=== PATIENT | female | born 1955 | race Caucasian/White ===

== ENCOUNTER 2019-03-28 19:46 | Observation (INO) | payer BC ==
[2019-03-28] MEDS ORDERED: Acetaminophen 325 MG TAB ONE (22:24)
[2019-03-28] MEDS ORDERED: Ondansetron ODT 4 MG TAB SL PRN (23:26)
[2019-03-28] MEDS ORDERED: Ondansetron PF 4 MG/2 ML Vial IVP PRN (23:26)
[2019-03-29] MEDS ORDERED: HYDROcodone/Acetaminophen 5/325 mg Tablet PO PRN ×2 (00:09→00:20)
[2019-03-29] MEDS ORDERED: Nitroglycerin 0.4 MG TAB (25 Tab Bottle) SL PRN (00:09)
[2019-03-29 00:44] LABS: Troponin I Less than 0.010 ng/mL (< 0.028)
[2019-03-29 02:51] LABS: #Eosinphils 0.2 thou/uL (0.0-0.7); #Lymphocytes 1.9 thou/uL (1.20-3.40); #Monocytes 0.5 thou/uL (0.11-0.59); #Neutrophils 3.2 thou/uL (1.40-6.50); %Basophils 0.2 % (0.0-1.0); %Eosinophils 3.3 % (0.0-10.0); %Lymphocytes 33.3 % (21.0-51.0); %Monocytes 8.1 % (0.0-10.0); %Neutrophils 55.1 % (42.0-75.0); Hemoglobin 13.4 g/dL (12.0-16.0); Mean Corpuscular HGB CONC 34.5 g/dL (32.0-36.0); Mean Corpuscular Hemoglobin 31.4 pg (27.0-31.0); Mean Platelet Volume 7.7 fL (7.4-10.4); Platelet Count 167 thou/uL (130-400); RBC Distribution Width 11.9 % (11.5-14.5); Red Blood Cell (RBC) Count 4.28 mill/uL (4.20-5.40); White Blood Cell (WBC) Count 5.8 thou/uL (4.8-10.8)
[2019-03-29 03:16] LABS: Troponin I Less than 0.010 ng/mL (< 0.028)
[2019-03-29 03:19] LABS: Anion Gap 15 mmol/L (10-20); BUN (Urea Nitrogen) 15 mg/dL (9.8-20.1); Calc. Creatinine Clearance 96 mL/min (70-130); Calcium 9.5 mg/dL (7.8-10.44); Carbon Dioxide 23 mmol/L (23-31); Chloride 103 mmol/L (98-107); Estimated GFR-MDRD 69; Glucose 163 mg/dL (80-115); Potassium 4.4 mmol/L (3.5-5.1); Sodium 137 mmol/L (136-145)
[2019-03-29] MEDS: Acetaminophen 325 MG TAB PO PRN ×3 (03:21→15:23)
[2019-03-29] MEDS ORDERED: Fenofibrate Nanocrystallized 145 MG TAB PO SCH (09:00)
[2019-03-29] MEDS ORDERED: Citalopram 20 MG TAB PO SCH (09:00)
[2019-03-29] MEDS ORDERED: Triamterene/Hydrochlorothiazide 37.5 mg/25 mg Tablet PO SCH (09:00)
[2019-03-29] MEDS ORDERED: Ezetimibe 10 MG TAB PO SCH (09:00)
[2019-03-29] MEDS ORDERED: lamoTRIgine 100 MG TAB PO SCH (09:00)
[2019-03-29] MEDS ORDERED: ADENOSINE 60 MG/20 ML VIAL ONE (10:26)
--- NOTE | 2019-03-29 11:34 | HP ---
PRIMARY CARE DOCTOR: Dr. Birch. She reported that she follows [place] in [place] in [place]. CODE STATUS: Full code. TIME OF EVALUATION: 11:50 p.m. CHIEF COMPLAINT: Chest pain. HISTORY OF PRESENT ILLNESS: This is 63-year-old female patient with past medical history of diabetes type 2, hyperthyroidism, hyperlipidemia, high cholesterol, hypertension, seizures, came to the hospital after having chest pain that was in the middle of the chest, radiating to the back when she was watching TV. No clear triggers. No alleviating factors. The symptoms were rated at 5/10. The patient has not responded to nitroglycerin, symptoms started suddenly. REVIEW OF SYSTEMS: CONSTITUTIONAL: No fever, chills, or generalized weakness. RESPIRATORY: No cough, sputum production, or shortness of breath. CARDIOVASCULAR: The patient has chest pain. No palpitation. GASTROINTESTINAL: No nausea, vomiting, diarrhea, or abdominal pain. CENTRAL NERVOUS SYSTEM: No dizziness, headache, or feeling lightheaded. GENITOURINARY: No burning on urination. EXTREMITIES: No leg swelling. All other systems were reviewed and negative except for the findings mentioned above. PAST MEDICAL HISTORY: As mentioned in the HPI. FAMILY HISTORY: Reviewed, noncontributory to current presentation. PAST SURGICAL HISTORY: Positive for hysterectomy, lower back repair x2. PSYCHIATRIC HISTORY: No previous psych history. SOCIAL HISTORY: No alcohol. No drugs. No smoking history. KNOWN ALLERGIES: Aspirin, codeine, Dilaudid, Iodine, latex, natural rubber, paper tape, penicillin, red dye, silicone. REPORTED MEDICATIONS: Medication being verified by RN with pharmacy in [place]. PHYSICAL EXAMINATION: VITAL SIGNS: On presentation, blood pressure 141/78 with heart rate 59, respiratory rate was 16, temperature 98.2. Pain was 5/10. Oxygen saturation 98% on room air. GENERAL APPEARANCE: The patient is alert, oriented, not in acute distress. HEENT: Eyes, normal conjunctivae. Moist oral mucosa. Anicteric. NECK: No JVD. RESPIRATORY: Bilateral air entry. No rales. No wheezes. Symmetric expansion. CARDIOVASCULAR: Normal rate. Regular rhythm. No murmurs. No gallop. No edema. ABDOMEN: Soft. Normal bowel sounds. MUSCULOSKELETAL: Baseline range of motion and strength. SKIN: Warm, intact. No pallor. No rash. No redness. Peripheral pulses are present. Capillary refill seems to be intact. NEUROLOGIC: No evidence of any new focal weakness. Cranial nerves seems to be intact. PSYCHIATRIC: Patient is in good mood. No anxiety. Optimal judgment. EKG was reviewed. The patient has sinus bradycardia at a rate of 68 with sinus arrhythmia. LABORATORY DATA: Reviewed. The patient has a white count 6.7, hemoglobin 13.5 , MCV 90.4, platelet count 199. Coagulation 12.3, INR 0.9, PTT 35.6. Chemistry; sodium 138, potassium 3.8, chloride 103, carbon dioxide 25, anion gap 14, BUN 16, creatinine 0.8. GFR 68. Glucose 110. Hemoglobin A1c 5.7, calcium 9.7. LFTs were negative. B-type natriuretic peptide was 35.3. ASSESSMENT AND PLAN: The patient will be placed in the hospital with follow medical problems; 1. Chest pain, rule out acute coronary syndrome. The patient has negative troponin. We will monitor troponin. We will monitor on tele. If still negative, the patient will need a stress test in the morning which has been ordered. NPO after midnight and we will consult Cardiology depending on results. 2. Hyperlipidemia. Continue fenofibrate. Reconcile home medications. 3. Deep venous thrombosis prophylaxis. Job ID: [id number] [facility]
--- NOTE | 2019-03-29 15:23 | NM ---
Radionucleotide stress and rest myocardial perfusion scan with CT attenuation correction and SPECT im aging Left ventricular wall motion evaluation and ejection fraction HISTORY: Chest pain. FINDINGS: Adenosine protocol. There is homogeneous uptake of radiotracer throughout the left ventricu lar myocardium. No focal perfusion defect or reversibility. QGS analysis of gated SPECT images shows no focal wall motion abnormalities. Ejection fraction calcul ated at 79%. IMPRESSION: Normal myocardial perfusion scan. Normal LVEF.
[2019-03-29 15:46] VITALS: BP 118/59; TEMP 97.9
--- NOTE | 2019-03-30 05:06 | DIS ---
DATE OF ADMISSION: 03/28/2019 DATE OF DISCHARGE: 03/29/2019 CHIEF COMPLAINT ON ADMISSION: Chest pain. DISCHARGE DIAGNOSES: 1. Atypical chest pain, acute coronary syndrome ruled out, nuclear stress test negative for reversible ischemia. 2. Type 2 diabetes mellitus. 3. Hyperthyroidism. 4. Hyperlipidemia. 5. Hypertension. 6. History of seizures. BRIEF HOSPITAL COURSE: The patient is a 63-year-old female with past medical history significant as outlined above with cardiac risk factors to include type 2 diabetes mellitus and hypertension, who presented to the hospital with complaints of chest pain that began while she was watching TV. The pain she describes as sharp and radiating to the back. The pain was nonexertional. She did not appear to have any associated symptoms from the pain but it did not relieve on its own, so she presented to the emergency room for further workup and evaluation. Her serial troponin was negative. Her EKG showed no acute ST or T-wave changes. Given her risk factors, she underwent nuclear stress test which was negative for reversible ischemia and showed normal left ventricular systolic function. The patient tolerated the test well. Her blood pressure was very well controlled throughout her stay. She had no return of her chest discomfort. She has ambulated in her room without issue. No complaints at this time. CONDITION AT DISCHARGE: Stable. DISCHARGE DISPOSITION: Home. DISCHARGE INSTRUCTIONS AND FOLLOWUP: The patient will continue her home medications without change. She will follow up with her primary care physician and continue aggressive risk factor modification. The results of the patient's tests were explained to her and all questions answered. She will be discharged home in good condition today. The care of this patient was discussed with Dr. Montelongo, who agrees with the above. Job ID: [id number] [facility]
== END 2019-03-29 17:12 | disposition home or self-care (01) ==
LOC: ERS 19:46 → 2SW 21:43
PROVIDERS: ADMIT Internal Medicine; ATTEND Internal Medicine
DX: R07.89 Other chest pain (principal); E11.9 Type 2 diabetes mellitus without complications; E78.5 Hyperlipidemia, unspecified; I10 Essential (primary) hypertension; E05.90 Thyrotoxicosis, unspecified without thyrotoxic crisis or storm; R56.9 Unspecified convulsions; Z79.899 Other long term (current) drug therapy; Z88.0 Allergy status to penicillin; Z88.5 Allergy status to narcotic agent; Z88.8 Allergy status to other drugs, medicaments and biological substances; Z91.040 Latex allergy status; Z91.041 Radiographic dye allergy status; Z91.048 Other nonmedicinal substance allergy status; Z91.09 Other allergy status, other than to drugs and biological substances
CPT/HCPCS: 36415; 78452; 80048; 84484; 85025; 90471; 90732; 93005; 93017; A9500; G0009; G0378; J0153

== ENCOUNTER 2021-03-03 12:35 | Outpatient (CLI) | payer MEDICARE | END 2021-03-03 12:36 | disposition home or self-care (01) | LOC: BICRAD 12:35 | PROVIDERS: ATTEND Physician Assistant Medical | DX: M54.6 Pain in thoracic spine (principal); R10.11 Right upper quadrant pain; K21.9 Gastro-esophageal reflux disease without esophagitis; M47.814 Spondylosis without myelopathy or radiculopathy, thoracic region; M25.78 Osteophyte, vertebrae | CPT/HCPCS: 72072 ==